=== PATIENT | female | born 1940 | race African-American/Black ===

== ENCOUNTER 2020-08-18 04:36 | Emergency (ER) | payer OTHER ==
[~2020-08-18] VITALS: Ht 152.4 cm; Wt 54.4 kg
[2020-08-18] MEDS ORDERED: COZAAR50 MG (05:00)
[2020-08-18] MEDS ORDERED: NORVASC5 MG (05:00)
== END 2020-08-18 17:15 | disposition designated cancer center or children's hospital (05) ==
LOC: ER 04:36
DX: R13.19 Other dysphagia (principal); T18.128A Food in esophagus causing other injury, initial encounter; X58.XXXA Exposure to other specified factors, initial encounter; Y93.89 Activity, other specified; Y92.89 Other specified places as the place of occurrence of the external cause; Y99.8 Other external cause status; Z03.818 Encounter for observation for suspected exposure to other biological agents ruled out